=== PATIENT | female | born 1960 | race Caucasian/White ===

== ENCOUNTER → 2023-07-30 13:41 | Outpatient (REF) | payer OTHER, SELFPAY | LOC: RAD 13:41 | PROVIDERS: ATTENDING PHYSICIAN Family Medicine | DX: Z87.891 Personal history of nicotine dependence (principal); Z12.2 Encounter for screening for malignant neoplasm of respiratory organs; R91.1 Solitary pulmonary nodule | CPT/HCPCS: 71250 ==

== ENCOUNTER 2023-11-25 06:03 | Observation (INO) | payer OTHER, SELFPAY ==
[2023-11-24 23:54] VITALS: BP 166/90
[2023-11-25] VITALS (7 sets, daily range): BP systolic 105–151; BP diastolic 64–103; PULSE 111; O2SAT 95; BMI 31.6; BMI 30.2
--- NOTE | 2023-11-25 00:26 | ED.GENMED ---
History of Present Illness
General
Chief Complaint: Change in Mental Status
Source: patient and family
Exam Limitations: none
Time Seen by Provider: 11/25/23 00:14
History of Present Illness
History of Present Illness:
See MDM
Past History
Past History
ED Past Medical History: Cancer (breast cancer 10 years ago)
ED Past Surgical History: Other (breast with tram flap)
Social History
Drug: None
Phy Exam
Physical Exam
Physical Exam:
See MDM
Course
Orders/Labs/Results
Orders:
Orders
11/25/23 00:10
CT Head W/o Iv Contrast Urgent
Comment:
Reason For Exam: r/o cva/tia
11/25/23 00:14
Electrocardiogram (*1) Urgent
Reason for Study: TIA/Stroke
EKG- Treatment ONCE
11/25/23 00:39
Complete Blood Count/With Diff Urgent
Comprehensive Metabolic Panel Urgent
Urinalysis Reflex To Culture Urgent
Date Specimen was Collected: 11/25/23
Time Specimen was Collected: 00:32
Urine Microscopic Reflex Cult Urgent
Urine Culture Urgent
[facility]RIA Source: U
Specimen Description:
Date Specimen was Collected: 11/25/23
Time Specimen was Collected: 00:32
Abnormal Lab Results
11/25/23
00:39
MPV 10.9 H fL
(7.4-10.4)
Absolute Monos (auto) 0.7 H 10^3/uL
(0.1-0.6)
Creatinine 0.5 L mg/dL
(0.6-1.0)
Glucose 114 H mg/dl
(70-99)
Alkaline Phosphatase 150 H U/L
(38-126)
Ur Occult Blood Reflex Trace A
(Negative)
Leukocyte Esterase Rfl Trace A
(Negative)
Urine RBC 3-6 A /HPF
(0-2)
Urine WBC (Reflex) 21-25 A /HPF
(0-5)
Urine Bacteria (Reflex) Many A
(Negative)
11/25/23 00:39
11/25/23 00:39
Vital Signs
Initial and Last Documented VS:
Initial Vital Signs
Temp Pulse Resp BP Pulse Ox
97.8 F 80 18 166/90 98
11/24/23 23:54 11/24/23 23:54 11/24/23 23:54 11/24/23 23:54 11/24/23 23:54
Last Documented Vital Signs
Temp Pulse Resp BP Pulse Ox
97.8 F 79 15 151/103 95
11/24/23 23:54 11/25/23 02:45 11/25/23 02:45 11/25/23 02:28 11/25/23 02:45
MDM/Problems Addressed
Differential Diagnosis Includes:
HPI and MDM Narrative:
62-year-old female presenting for evaluation of confusion and loss of memory. She presents with family. Patient does not recollect the events leading up to today's events. Patient does not member which she ate today and does not remember whether
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
Into the room, patient is in tears. She is upset that she has loss of memory but denies any other physical complaint such as chest pain, headache, shortness of breath or urinary symptoms. We did discuss the possibility of transient global amnesia.
She recently lost a friend a week ago. We discussed this could be the root cause. Regardless, will obtain basic blood work and CT head
Physical exam
General: Well appearing and non-toxic
HEENT: protecting airway
Neck: appears supple
CV: No evidence of cyanosis. Regular rate and rhythm
Resp: No accessory muscle use
Abd: Non-distended
Extremities: No deformities. No leg edema
Neuro: alert
Psych: Tearful
Skin: Intact
Problems Addressed including Acute and Chronic Conditions affecting care:
1. Loss of memory
Acuity: acute
Prognosis: stable
Details: Discussed likely transient global amnesia. Will obtain basic blood work and CT head
Updates
Blood work without significant clinical relevance. CT reviewed and there is no obvious mass or bleeding
Differential Diagnosis (but not limited to): Brain mass, transient global amnesia, stress response
Testing considered: UDS
Drug therapy (if applicable): OTC meds, please see d/c instruction regarding Rx drugs
Amount and/or Complexity of Data Reviewed
Clinical info obtained from: Patient
External data reviewed: N/A
Labs I independently reviewed (but not limited to): White blood cell count
Radiology: CT independently reviewed as no obvious mass or bleed on CT head
Pulse Ox: not hypoxic
EKG independently reviewed: Sinus rhythm, left axis, no STEMI
Revenue Enforcement Collection Agent: N/A
Critical Care: N/A
Risk of Complication:
Social Determinants of health: Good social support
Discussed with other providers: Hospital
Escalation of Care includes Admit/Obs: Given the concern for transient global amnesia, will admit for further evaluation
Occasional wrong word or 'sound a like' substitutions may have occurred due to the inherent limitations of voice recognition software. Read the chart carefully and recognize, using context, where substitutions have occurred.
*Critical Care Note
Total Time (30-74mins, 75-104mins- exclusive of procedures): Not Applicable
ED Attending Note
-
Portions of this chart may have been created with voice recognition software.� Occasional wrong word or��sound alike� substitutions may have occurred due to the inherent limitations of voice recognition software.
Discharge Plan
Departure
Patient Disposition: Admit
Date of Disposition: 11/25/23
Time of Disposition: 03:04
Admit to: Telemetry
Presentation/result/management discussed w/ accepting MD/DO: Hospitalist
Discharge Problem:
TGA (transient global amnesia)
Prescriptions:
No Action
biotin
10,000 mcg PO DAILY
Referrals:
Kamila Randhawa MD [Family Provider] -
Interventions
Interventions:
*Risk Screen - Suicide Last Done: 11/24/23 23:54
*General Assessment Last Done: 11/25/23 02:13
*Neglect/Abuse Screening Last Done: 11/24/23 23:54
ED- Fall Risk Assessment Last Done: 11/25/23 00:59
*ED COVID-19 Vaccine History Last Done: 11/25/23 02:13
ED- Pulmonary Assessment Last Done: 11/25/23 00:59
ED- Neurological Assessment Last Done: 11/25/23 00:59
ED- Cardiac Assessment Last Done: 11/25/23 00:59
ED Swallowing Screen Last Done: 11/25/23 00:59
Discharge Date and Time
Print Language: MAORI
[2023-11-25 01:02] LABS: % Basophils 0.7 % (0-2); % Eosinophils 0.8 % (0-6); % Immature Granulocytes 0.1 % (0-0.5); % Lymphocytes 24.1 % (20.5-51.1); % Monocytes 7.9 % (1.7-9.3); % Neutrophils 66.4 % (42.2-75.2); Absolute Basophils 0.1 10^3/uL (0-0.2); Absolute Eosinophils 0.1 10^3/uL (0-0.7); Absolute Monocytes 0.7 10^3/uL (0.1-0.6); Absolute Neutrophils 5.5 10^3/uL (1.4-6.5); Hematocrit 42.8 % (37.0-47.0); Hemoglobin 14.7 g/dL (12.0-16.0); Mean Corp Hgb Conc. 34.3 g/dL (33.0-37.0); Mean Corpuscular Hgb 30.8 pg (27.0-31.0); Mean Corpuscular Volume 89.5 fL (81.0-99.0); Mean Platelet Volume 10.9 fL (7.4-10.4); Nucleated Red Blood Cells % 0 %; Platelet Count 265 10^3/uL (130-400); Red Blood Cell Count 4.78 10^6/uL (4.20-5.40); Red Cell Dist. Width 13.2 % (11.5-14.5); White Blood Cell Count 8.3 10^3/uL (4.8-10.8)
[2023-11-25 01:14] LABS: Urine Albumin Negative (Neg - Trace); Urine Bilirubin Negative (Negative); Urine Character Slightly Cloudy (Clear); Urine Color Yellow; Urine Glucose Negative (Negative); Urine Ketone Negative (Negative); Urine Leukocyte Trace (Negative); Urine Nitrite Negative (Negative); Urine Occult Blood Trace (Negative); Urine Urobilinogen Negative (Neg - 1+)
[2023-11-25 01:16] LABS: ALT (SGPT) 23 U/L (0-35); AST (SGOT) 29 U/L (14-36); Albumin 4.4 g/dl (3.5-5.0); Alkaline Phosphatase 150 U/L (38-126); Blood Urea Nitrogen 13 mg/dl (7-17); Calcium 9.6 mg/dl (8.4-10.2); Carbon Dioxide 26 mmol/L (22-30); Chloride 103 mmol/L (98-107); Estimated Creatinine Clearance 94 ml/min; Glucose 114 mg/dl (70-99); Sodium 137 mmol/L (135-145); Total Bilirubin 0.6 mg/dl (0.2-1.3); Total Protein 7.1 g/dl (6.3-8.2); eGFR > 60.00
[2023-11-25 01:36] LABS: Urine Mucus Many; Urine Squamous Cell >30 /LPF (Few)
[2023-11-25 01:37] LABS: Urine Bacteria Many (Negative); Urine White Cell 21-25 /HPF (0-5)
--- NOTE | 2023-11-25 05:36 | HPS.HSE ---
Addendum entered and electronically signed by Kiran Garner MD 11/25/23 14:14:
NEG UDS
Addendum entered and electronically signed by Kiran Garner MD 11/25/23 14:14:
11/25/23 Brain MRI: No MRI evidence for an acute infarct.
Original Note:
Family Physician
-
Family Physician: Kamila Randhawa
Chief Complaint
-
recent memory dysfunction
History of Present Illness
62F remote HX breast CA , no significant PMHX evaluation at ER for recent memory dysfunction
Recent somewhat acute memory dysfunction
- does not remember her foot Dr
- did not remember a plant she hung yesterday
- did not remember texting boy friend
- does not remember leaving work
- Boy friend check on her at 2230 - she has not recall the events
- denied any motor weakness
Medical History
Past Medical History
Past Medical History: Reports Cancer (remote HX breast CA 10 yrs ago )
Past Surgical History: Reports None
Social History
Tobacco: Non-smoker
Alcohol: None
Personal: Single
Family History
Family History: Not pertinent
Allergies / Home Medications
Allergies reflects when Allergies were last updated in [facility].
Home Medications with original date entered in [facility]
Allergy/Medication List:
Allergies
Allergy/AdvReac Type Severity Reaction Status Date / Time
adhesive Allergy Rash Verified 11/24/23 23:58
Home Medications
biotin 10,000 mcg PO DAILY 11/25/23
Review of Systems
-
Constitutional: Reports No Symptoms
EENT: Reports No Symptoms
Respiratory: Reports No Symptoms
Cardiac: Reports No Symptoms
Abdomen/GI: Reports No Symptoms
: Reports No Symptoms
Musculoskeletal: Reports No Symptoms
Skin: Reports No Symptoms
Neurological: Reports See HPI
Endocrine: Reports No Symptoms
Hematologic/Lymphatic: Reports No Symptoms
Psych: Reports No Symptoms
Physical Exam
Vital Signs
Vital Signs
Temp Pulse Resp BP Pulse Ox
97.8 F 79 15 151/103 95
11/24/23 23:54 11/25/23 02:45 11/25/23 02:45 11/25/23 02:28 11/25/23 02:45
Physical Exam
General: Well Developed, Well Nourished and No Apparent Distress
HEENT: NormoCephalic, Moist mucous membranes and Atraumatic
Respiratory: Clear
Cardiac: S1/S2 and Regular Rhythm; No Murmur or Rub
GI: Soft, Non Tender, Non Distended and Normal Bowel Sounds; No Organomegaly
Rectal: Deferred by Provider
Musculoskeletal: No Clubbing, No Cyanosis and No Edema
Skin: No Rash
Neuro: Nonfocal/grossly intact
Laboratory Results
-
11/25/23 00:39
11/25/23 00:39
Laboratory Results
Total Bilirubin 0.6 mg/dl (0.2-1.3) 11/25/23 00:39
AST 29 U/L (14-36) 11/25/23 00:39
ALT 23 U/L (0-35) 11/25/23 00:39
Alkaline Phosphatase 150 U/L (38-126) H 11/25/23 00:39
Data Reviewed
-
Diagnostic Radiology: Report Reviewed by me
Lab Data: Labs Reviewed by me
Impression/Plan
-
Reviewed VS: stable VSS BP 165/90- 150/100
Data
Unremarkable CBC and CMP
UA: WCC 21- 25 . many bacteria
HCT: unremarkable except global cerebral volume loss and mild small vessel ischemic changes
Last hospitalist admission:
ASSESSMENT & PLAN
Acute immediate vs. short memory dysfunction endorsed by boy friend
- DDX : TGA vs acute TME due to UTI
- No focal neuro deficit
- check UDS
- Brain MRI
- Treat UTI and observe memory
- Neuro consult
UA c/w UTI but denied urinary symptoms
- f/u UCx
- empiric IV CFTZ
DVT Px: LMWH
Code: Full code
Obs TLM
[2023-11-25] MEDS: STERILE WATER FOR INJECTION 10 ML IV (08:45)
[2023-11-25] MEDS: ROCEPHIN 1000 MG IV (08:46)
--- NOTE | 2023-11-25 09:00 | PTCARENOTE ---
Received pt from the ED via stretcher, pt ambulated independently and steadily into the room. Pt AAOx3, c/o mild 4/10 BILLINGSLEY. Neuro check and NIHSS completed as ordered, score of zero, see neuro flow sheet. Speech at the bedside to evaluate pt, cleared
for regular diet without restriction. Assessment as documented. IV Rocephin given as ordered, see MAR. Pt oriented to unit and call mayer.
--- NOTE | 2023-11-25 09:07 | PTOTSP ---
Dysphagia Evaluation
Oral and pharyngeal stages of swallowing suspected to be grossly WFL. No signs of aspiration observed.
Recommend:
1. Regular, Thin Liquids
2. Medications as best tolerated
3. General aspiration precautions
4. Hold cognitive linguistic evaluation pending further medical work up/etiology of AMS.
[2023-11-25 10:19] LABS: Amphetamines Negative (Negative); Barbiturates Negative (Negative); Benzodiazepines Negative (Negative); Buprenorphine Negative (Negative); Cocaine Negative (Negative); Marijuana Negative (Negative); Methadone Negative (Negative); Methamphetamines Negative (Negative); Opiates Negative (Negative); Phencyclidine Negative (Negative); Tricyclic Antidepressants Negative (Negative)
--- NOTE | 2023-11-25 11:32 | CON.NEURO4 ---
Consultation - Neurology 4
-
CONSULTING PHYSICIAN: Doug Kendrick MD neurology
REFERRING PHYSICIAN: Hospitalist
DICTATED BY: Doug Kendrick MD
DATE/TIME OF REQUEST: November 25, 2023
DATE/TIME OF CONSULTATION: 01/19/2024 1000A
Reason for Consultation: Altered mental status
History of Present Illness:
This is a 62-year-old right handed female who was admitted to the hospital with chief complaint of altered mental status. She gives a remote history of breast cancer status post mastectomy 10 years ago, diverticulosis who had been in usual state
of health till yesterday. 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 She was also able to unable to recall any events earlier in the day.
She does not remember going to work and returning home from work. She does not remember texting her significant other. Given the state of her forgetfulness significant other brought her to the emergency room
At the emergency room patient was tearful and unable to recall events of the day. She denies any falls or head injuries. No headaches no dizziness no double vision. No difficulty speaking swallowing.
No loss of balance incoordination or gait impairment.
Following admission her memory has improved. At the time of my examination this morning patient is at baseline and able to recall events of the day
Past Medical History: Breast cancer(L)
Surgical History: Mastectomy
Family History: Father had history of prostate cancer. Brother has history of colon cancer
Social History: Lives at home with her significant other
Allergies: Adhesive
Home Medications: Biotin
Review of Symptoms:
Patient denies any fever, headache, chest pain, shortness of breath, GI or symptoms.
�Per the HPI.�All systems are reviewed negative except above.
�-
Vital Signs: Temp 36.4 C Pulse 74 Resp 14 BP140/85 Pulse Ox 97
Physical Exam:
The patient is afebrile, heart sounds S1 and S2 are (regular / irregular), and chest is clear to auscultation bilaterally.
- If not clear, describe.
Neurologic Examination:
The patient is awake, alert and oriented x 3. (He/She) is able to follow commands and answer questions appropriately. There is no aphasia or dysarthria. On cranial nerve assessment, pupils are 3 mm bilateral, round and reactive to light and
accommodation. Visual story are full. Extraocular movements are intact. Facial sensations are intact and bilaterally symmetrical, there is no facial asymmetry. Hearing is intact bilaterally to normal conversation volume. Tongue palate and uvula
are midline. Sternocleidomastoid strengths are full bilaterally. Motor strengths are 5/5 bilateral upper and lower extremities on medical research [place] scale. There is no drift or involuntary movement noted. Deep tendon reflexes are 2+ bilateral
upper and lower extremities and Babinski is absent bilaterally. Sensations of pain, touch, temperature and vibration are intact and bilaterally symmetrical. There was no extinction noted on double simultaneous stimulation. Coordination is intact by
finger to nose bilaterally.
Lab Results: Addendum
Neuro Imaging: CT of the head shows mild cortical atrophy normal cortical architecture normal ventricles.
MRI Head Mild age-related parenchymal atrophy. T2/FLAIR hyperintense signal foci in the white matter of the bilateral cerebral hemispheres, likely on the basis of mild chronic microangiopathic ischemia. No mass effect, midline shift, or extra axial
collection. No abnormal parenchymal or meningeal enhancement. No abnormal signal intensity on diffusion-weighted images.
The vascular flow voids at the skull base are unremarkable, as far as visualized.
The paranasal sinuses and mastoids are clear.
EEG: WNL
Impression:
Ms.NORA COREAS is a 62 year old F who has presented to the hospital complaints of altered mental status and inability to recall events of her day.
Differentials for the patient's presentation include:
1. Seizure
2. TIA
Recommendations:
1. Aspirin 81 mg
2. EEG
3. MRI of the brain
Discussed patient care with: Hospitalist
Total Time Spent with Patient (in minutes): 30
Vital Signs and Labs
-
Vital Signs and Labs:
Vital Signs
Temp Pulse Resp BP Pulse Ox
36.4 C 74 14 140/85 97
11/25/23 07:48 11/25/23 09:04 11/25/23 09:04 11/25/23 08:00 11/25/23 09:04
Lab Results
11/25/23 00:39
11/25/23 00:39
Sodium 137 mmol/L (135-145) 11/25/23 00:39
Potassium 4.0 mmol/L (3.5-5.1) 11/25/23 00:39
BUN 13 mg/dl (7-17) 11/25/23 00:39
Glucose 114 mg/dl (70-99) H 11/25/23 00:39
Calcium 9.6 mg/dl (8.4-10.2) 11/25/23 00:39
Ur Buprenorphine Negative (Negative) 11/25/23 08:45
--- NOTE | 2023-11-25 12:59 | W.PN.UPDATE ---
Update Note
Progress Note Update
Seen and examined independent of overnight physician. Resting in bed. States started. States able to slowly recall some events from yesterday. Denies any focal weakness. States a mild headache. No vision problems or nausea or vomiting or
diarrhea or chest pain. No focal weaknesses. She denies numbing or tingling.
General: Well Developed, Well Nourished and No Apparent Distress
HEENT: NormoCephalic, Moist mucous membranes and Atraumatic
Respiratory: Clear
Cardiac: S1/S2 and Regular Rhythm; No Murmur or Rub
GI: Soft, Non Tender, Non Distended and Normal Bowel Sounds; No Organomegaly
Rectal: Deferred by Provider
Musculoskeletal: No Clubbing, No Cyanosis and No Edema
Skin: No Rash
Neuro: Nonfocal/grossly intact
Confusion associated with loss of memory events of yesterday likely secondary to transient global amnesia versus rule out CVA
- No focal neuro deficit
- UDS negative
- MRI brain pending
- Follow-up on urine culture.
- EEG ordered and pending per neurology
- Passed swallow eval
- Neuro consult
UA with significant squamous epithelial likely nonsterile sample
Already received antibiotics.
Follow-up on the culture data
No symptomatology.
Multiple squamous cells noted
DC antibiotics and observe
DVT Px: LMWH
Code: Full code
PT/OT
--- NOTE | 2023-11-25 14:37 | EEG.RPT ---
Electroencephalogram Report
Recording
Date of EE11/25/23
Type of EEG: Routine
Length of EEG recordin minutes
Done with Video Recording: Yes
Patient Status: Inpatient
Recording Conditions: Awake, Drowsy and Asleep
Hyperventilation Performed: No
Photic Stimulation Performed: Yes
Report
GREATER THAN 1 HOUR EEG REPORT
EEG INTERPRETATION:
Unremarkable EEG for age
CLINICAL CORRELATION:
A normal EEG does not rule out a diagnosis of epilepsy. If clinical suspicion for seizure persists, a prolonged recording may be warranted.
Clinical correlation is advised.
METHODS:
A 21 channel digitized electroencephalogram (EEG) was performed in the Clinical Neurophysiology Laboratory. The 10/20 international system of electrode placement was used with ECG and lateral/vertical eye movements recorded. Persyst quantitative EEG
analysis was performed.
ELECTROENCEPHALOGRAPHER IMPRESSION(S):
Quality of study
Good
Background
Unremarkable, well maintained, medium amplitude alpha-frequency and unremarkable anterior-posterior voltage gradient
With eye opening the background activity changed to a low voltage mixture of frequencies.
Sleep
Drowsiness present
Stage 1 sleep recorded
Stage 2 sleep recorded
Hyperventilation
Did not activate the record
Photic Stimulation
Did not activate the record
ECG
Normal sinus rhythm
--- NOTE | 2023-11-25 17:12 | CM ---
Patient with Dx Confusion associated with loss of memory events of yesterday likely secondary to transient global amnesia versus rule out CVA. Room air. EEG and Brain MRI today. PT & OT Evals pending.
Met with patient who was unavailable - undergoing EEG.
Met with patient's SO Zach;
the patient resides alone with her 2 dogs in a 2 story house with 6 [address].
She has been independent in ADLs and ambulation.
The patient had been active, working and driving.
The patient's only DME is a RW that she is not using.
No prior VN or SNF.
PCP - Kamila Randhawa
Pharmacy - [facility], [address]
The patient has no children.
Her SO Zach Jett stays with her about 6 days/week and is available to assist her after d/c.
Plan follow up after seen by PT/OT.
[2023-11-25] MEDS: LOVENOX 40 MG SC (18:31)
[2023-11-25] MEDS: TYLENOL 650 MG PO (18:57)
--- NOTE | 2023-11-25 23:23 | PTCARENOTE ---
Caring for patient overnight. aaox3. NIH 0, neuro checks wnl. no complaints of pain. SR, remains on RA. self in room. significant other at bedside earlier. Will continue to monitor.
[2023-11-26] VITALS (7 sets, daily range): BP systolic 132–150; BP diastolic 64–106; PULSE 80; O2SAT 92
[2023-11-26 04:22] LABS: % Basophils 1.2 % (0-2); % Eosinophils 3.4 % (0-6); % Immature Granulocytes 0.2 % (0-0.5); % Lymphocytes 42.7 % (20.5-51.1); % Neutrophils 42.5 % (42.2-75.2); Absolute Basophils 0.1 10^3/uL (0-0.2); Absolute Eosinophils 0.2 10^3/uL (0-0.7); Absolute Lymphocytes 2.5 10^3/uL (1.2-3.4); Absolute Monocytes 0.6 10^3/uL (0.1-0.6); Absolute Neutrophils 2.5 10^3/uL (1.4-6.5); Hematocrit 43.6 % (37.0-47.0); Hemoglobin 14.9 g/dL (12.0-16.0); Mean Corp Hgb Conc. 34.2 g/dL (33.0-37.0); Mean Corpuscular Hgb 30.7 pg (27.0-31.0); Mean Corpuscular Volume 89.7 fL (81.0-99.0); Mean Platelet Volume 10.8 fL (7.4-10.4); Nucleated Red Blood Cells % 0 %; Platelet Count 237 10^3/uL (130-400); Red Blood Cell Count 4.86 10^6/uL (4.20-5.40); Red Cell Dist. Width 13.3 % (11.5-14.5); White Blood Cell Count 5.9 10^3/uL (4.8-10.8)
[2023-11-26 05:21] LABS: ALT (SGPT) 22 U/L (0-35); AST (SGOT) 31 U/L (14-36); Albumin 4.1 g/dl (3.5-5.0); Alkaline Phosphatase 169 U/L (38-126); Blood Urea Nitrogen 16 mg/dl (7-17); Calcium 9.9 mg/dl (8.4-10.2); Carbon Dioxide 22 mmol/L (22-30); Chloride 109 mmol/L (98-107); Estimated Creatinine Clearance 93 ml/min; Glucose 100 mg/dl (70-99); HDL Cholesterol 80 mg/dl; LDL Cholesterol, Calculated 105 mg/dl; Potassium 4.4 mmol/L (3.5-5.1); Sodium 141 mmol/L (135-145); Total Bilirubin 0.5 mg/dl (0.2-1.3); Total Cholesterol 204 mg/dl (50-199); Total Protein 6.9 g/dl (6.3-8.2); Triglyceride 98 mg/dl (10-149); Very Low Density Lipoprotein 19 mg/dl (0-30); eGFR > 60.00
--- NOTE | 2023-11-26 08:26 | VATNOTE ---
Pt stated she had mild discomfort at her IV site at time of routine assessment. Encouraged patient to let me change her IV. Pt declined IV site change at this time, states they are not using it and thinks she will be discharged today. Informed pt
that if she changes her mind she can have me paged to change the IV. Will reassess tomorrow if pt is not discharged.
[2023-11-26] MEDS: ASPIR LOW (ENTERIC COATED) 81 MG PO (08:47)
--- NOTE | 2023-11-26 09:38 | PTOTSP ---
The patient is independent with ambulation and elevations, no strength or coordination deficits noted. No PT needs identified at this time, will sign off.
--- NOTE | 2023-11-26 11:59 | W.DS.TRANS ---
DC Summary - Medical Illustrator
-
Discharge Instructions:
Discharge Diagnosis/Procedures TGA.
UTI
Diet Regular
Instructions:
Stand-Alone Forms:
Changes to Home Medications: Yes
Discharge Medications:
DC Medications w/original date entered in [facility]
biotin 10,000 mcg PO DAILY Supplement 11/25/23
aspirin 81 mg tablet,delayed release 81 mg PO DAILY #30 tabs 11/26/23
cephalexin 500 mg capsule 500 mg PO Q8H #10 caps 11/26/23
Home Medication Changes
Above
Pending Results: No
--- NOTE | 2023-11-26 13:18 | CM ---
Patient with Dx TGA/ transient global amnesia. PT & OT Evals; No skilled PT/OT needed
Met with patient and her SO Zach; the patient states she feels ready for d/c home today. Observation Letter completed. She declined the offer for VN. Zach will provide transport home.
No CM d/c needs identified.
Plan home today.
--- NOTE | 2023-11-26 13:22 | PTCARENOTE ---
Pt for d/c home. Instructions and med list reviewed with pt. IV and monitor equipment removed. Belongings collected from room. For d/c home with S.O. Ambulated off unit.
== END 2023-11-26 13:40 | disposition home or self-care (01) ==
LOC: IMU 06:03
PROVIDERS: Hospitalist; ADMITTING PHYSICIAN Internal Medicine; ATTENDING PHYSICIAN Internal Medicine; CONSULT PHYSICIAN Psychiatry & Neurology Neurology; EMERGENCY PHYSICIAN Student in an Organized Health Care Education/Training Program; FAMILY PHYSICIAN Family Medicine
DX: G45.4 Transient global amnesia (principal); N39.0 Urinary tract infection, site not specified; R41.82 Altered mental status, unspecified; R56.9 Unspecified convulsions; Z85.3 Personal history of malignant neoplasm of breast; Z91.048 Other nonmedicinal substance allergy status; Z80.42 Family history of malignant neoplasm of prostate; Z80.0 Family history of malignant neoplasm of digestive organs
CPT/HCPCS: 70450; 70553; 80053; 80061; 80306; 81003; 81015; 85025; 87086; 92610; 93005; 95816; 97162; 97167; 99285; A9575; G0378

== ENCOUNTER → 2024-01-26 08:39 | Outpatient (REF) | payer OTHER, SELFPAY | LOC: HWRAD 08:39 | PROVIDERS: ATTENDING PHYSICIAN Family Medicine | DX: R35.0 Frequency of micturition (principal); R10.9 Unspecified abdominal pain | CPT/HCPCS: 76770 ==

== ENCOUNTER → 2024-03-17 17:55 | Outpatient (REF) | payer OTHER, SELFPAY | LOC: WDC 17:55 | PROVIDERS: ATTENDING PHYSICIAN Obstetrics & Gynecology Gynecology; FAMILY PHYSICIAN Family Medicine | DX: Z85.3 Personal history of malignant neoplasm of breast (principal); Z90.12 Acquired absence of left breast and nipple; Z12.31 Encounter for screening mammogram for malignant neoplasm of breast | CPT/HCPCS: 77063; 77067 ==

== ENCOUNTER → 2024-04-22 06:22 | Day surgery (SDC) | payer OTHER, SELFPAY | LOC: GI 06:22 | PROVIDERS: ATTENDING PHYSICIAN Internal Medicine | DX: Z12.11 Encounter for screening for malignant neoplasm of colon (principal); D12.3 Benign neoplasm of transverse colon; D12.6 Benign neoplasm of colon, unspecified; K57.30 Diverticulosis of large intestine without perforation or abscess without bleeding; K64.8 Other hemorrhoids; Z86.0100 Personal history of colon polyps, unspecified; Z80.0 Family history of malignant neoplasm of digestive organs | CPT/HCPCS: 45385; 88305 ==

== ENCOUNTER 2024-12-20 06:10 | Day surgery (SDC) | payer OTHER, SELFPAY ==
[2024-12-14 11:15] LABS: Hematocrit 41.9 % (37.0-47.0); Hemoglobin 13.8 g/dL (12.0-16.0); Mean Corp Hgb Conc. 32.9 g/dL (33.0-37.0); Mean Corpuscular Volume 89.3 fL (81.0-99.0); Platelet Count 220 10^3/uL (130-400); Red Cell Dist. Width 12.6 % (11.5-14.5)
[2024-12-14 11:51] LABS: Blood Urea Nitrogen 14 mg/dl (7-17); Calcium 9.0 mg/dl (8.4-10.2); Carbon Dioxide 29 mmol/L (22-30); Chloride 106 mmol/L (98-107); Glucose 91 mg/dl (70-99); Potassium 4.4 mmol/L (3.5-5.1); Sodium 139 mmol/L (135-145); eGFR > 60.00
[2024-12-14 14:04] VITALS: BMI 30.8
[2024-12-20] VITALS (7 sets, daily range): BP systolic 144–166; BP diastolic 79–95; BMI 30.8
[2024-12-20] MEDS: NORMOSOL-R/PLASMALYTE-A 1000 IV (07:53)
[2024-12-20] MEDS: CYSVIEW KIT 100 MG INTRAVES (08:05)
[2024-12-20] MEDS: DETROL LA 4 MG PO (09:36)
== END 2024-12-20 10:30 | disposition home or self-care (01) ==
LOC: SDS 06:10
PROVIDERS: ATTENDING PHYSICIAN Surgery; FAMILY PHYSICIAN Family Medicine
DX: N30.80 Other cystitis without hematuria (principal); N30.30 Trigonitis without hematuria; Z87.448 Personal history of other diseases of urinary system
CPT/HCPCS: 52204; C9738; 36415; 80048; 85027; 88305; 93005; A9589

== ENCOUNTER → 2024-12-28 13:33 | Outpatient (REF) | payer OTHER, SELFPAY | LOC: RAD 13:33 | PROVIDERS: ATTENDING PHYSICIAN Surgery; FAMILY PHYSICIAN Family Medicine | DX: N13.30 Unspecified hydronephrosis (principal); Z87.891 Personal history of nicotine dependence; Z12.2 Encounter for screening for malignant neoplasm of respiratory organs; R91.1 Solitary pulmonary nodule | CPT/HCPCS: 71250; 74178; Q9967 ==

== ENCOUNTER → 2025-03-17 15:20 | Outpatient (REF) | payer OTHER, SELFPAY | LOC: WDC 15:20 | PROVIDERS: ATTENDING PHYSICIAN Obstetrics & Gynecology Gynecology; FAMILY PHYSICIAN Family Medicine | DX: Z12.31 Encounter for screening mammogram for malignant neoplasm of breast (principal) | CPT/HCPCS: 77063; 77067 ==

== ENCOUNTER → 2025-04-01 10:18 | Outpatient (REF) | payer OTHER, SELFPAY | LOC: WDC 10:18 | PROVIDERS: ATTENDING PHYSICIAN Obstetrics & Gynecology Gynecology; FAMILY PHYSICIAN Family Medicine | DX: R92.8 Other abnormal and inconclusive findings on diagnostic imaging of breast (principal) | CPT/HCPCS: 77065 ==

== ENCOUNTER → 2025-04-05 13:03 | Outpatient (REF) | payer OTHER, SELFPAY | LOC: RAD 13:03 | PROVIDERS: ATTENDING PHYSICIAN Obstetrics & Gynecology Gynecology; FAMILY PHYSICIAN Family Medicine | DX: M85.89 Other specified disorders of bone density and structure, multiple sites (principal) | CPT/HCPCS: 77080 ==

== ENCOUNTER → 2025-04-06 06:17 | Outpatient (REF) | payer OTHER, SELFPAY ==
--- NOTE | 2025-04-06 09:16 | OID.BR.INTR ---
[facility] Breast Navigator - Initial
- -
Date of Contact: 04/06/25
Met with patient. Patient given written information on navigator services and support services available at [facility]. Will follow up as needed per protocol.
== END ==
LOC: WDC 06:17
PROVIDERS: ATTENDING PHYSICIAN Obstetrics & Gynecology Gynecology; FAMILY PHYSICIAN Family Medicine
DX: R92.1 Mammographic calcification found on diagnostic imaging of breast (principal)
CPT/HCPCS: 19081; 76098; 88305; A4648